=== PATIENT | female | born 1980 | race Two or more races ===

== ENCOUNTER 2018-01-10 17:22 | Emergency (ER) | payer SELFPAY ==
[~2018-01-10] VITALS: Ht 162.6 cm; Wt 68.0 kg
[~2018-01-10 17:22] MED LIST: IBUPROFEN600 MG ORAL
[2018-01-10 17:46] VITALS: BP 121/82
[2018-01-10] MEDS ORDERED: Ketorolac 60mg Inj IM ONE (18:15)
--- NOTE | 2018-01-10 18:26 | Emergency Room Report ---
History of Present Illness General Chief Complaint: Lower Back Pain or Injury Source: Patient, Medical Record Present Illness HPI 37-year-old female presents to the emergency department complaining of 8 out of 10 in severity low back pain for approximately one week. Patient reports that she was doing a lot of house cleaning the day before onset of her symptoms. Patient reports that she has had some back pain in the past that she was very active with her job however usually resolved after a few days. Patient states that she has tried some warm compresses however she continues to have pain is presently only when she is laying down or when sh attempts to bend forward. She denies trauma or fall, history of recent spinal procedure or of having cancer.. She denies urinary frequency, urgency, hematuria or dysuria. Patient denies abdominal tenderness. Denies . Denies numbness tingling or loss of sensation or gross motor movements of the extremities, incontinence of bowel or bladder. Denies CP, Palpitations, LOC, AMS, dizziness, Changes in Vision, Sensation, paresthesias, or a sudden severe headache. Allergies: Coded Allergies: No Known Allergies (Unverified , 08/28/15) Patient History Past Medical History: see triage record Past Surgical History: none Pertinent Family History: none Reviewed Nursing Documentation: PMH: Agreed; PSxH: Agreed Nursing Documentation-PMH Past Medical History: No History, Except For Review of Systems All Other Systems: negative except mentioned in HPI Physical Exam Vital Signs Date Time Temp Pulse Resp B/P (MAP) Pulse Ox O2 Delivery O2 Flow Rate FiO2 01/10/18 17:37 98.2 99 18 121/82 95 Room Air 98.2 Sp02 EP Interpretation: reviewed, normal General Appearance: no apparent distress, alert, GCS 15, non-toxic Head: normocephalic, atraumatic Eyes: bilateral eye normal inspection, bilateral eye PERRL ENT: hearing grossly normal, normal voice Neck: full range of motion Respiratory: lungs clear, normal breath sounds, speaking full sentences Cardiovascular #1: regular rate, rhythm, normal capillary refill Cardiovascular #2: 2+ radial (R), 2+ radial (L) Gastrointestinal: non tender, soft Genitourinary: normal inspection, no CVA tenderness Musculoskeletal: back normal, gait/station normal, normal range of motion - with some exacerbation of pain. , tender - Mild Tenderness to palpation to paraspinal muscles of the lower back, no spinous process tenderness, no midline tenderness Neurologic: alert, oriented x3, responsive, motor strength/tone normal, sensory intact, normal gait, speech normal, grossly normal Psychiatric: judgement/insight normal Skin: normal color, no rash, warm/dry, well hydrated Medical Decision Making PA Attestation Dr. Gonsalez is my supervising Physician whom patient management has been discussed with. Diagnostic Impression: Primary Impression: Lumbosacral pain Additional Impression: Lumbosacral strain Qualified Codes: S39.012A - Strain of muscle, fascia and tendon of lower back , initial encounter ER Course 37-year-old female presents to the emergency department complaining of 8 out of 10 in severity low back pain for approximately one week. Patient reports that she was doing a lot of house cleaning the day before onset of her symptoms. Patient reports that she has had some back pain in the past that she was very active with her job however usually resolved after a few days. Patient states that she has tried some warm compresses however she continues to have pain is presently only when she is laying down or when sh attempts to bend forward. She denies trauma or fall, history of recent spinal procedure or of having cancer.. She denies urinary frequency, urgency, hematuria or dysuria. Patient denies abdominal tenderness. Denies . Denies numbness tingling or loss of sensation or gross motor movements of the extremities, incontinence of bowel or bladder. Denies CP, Palpitations, LOC, AMS, dizziness, Changes in Vision, Sensation, paresthesias, or a sudden severe headache. Ddx considered: epidural abscess, fracture, sprain/strain, meningitis, spinal chord injury. Vital signs reviewed and are during ED visit. Pt. is afebrile with no signs of infection No new symptoms, and denies recent trauma. No saddle anesthesia noted, Pt. denies incontinence Neurovascular is intact- No evidence of neurological deficit. FROM with pain. Pt. is ambulatory. * Mild Tenderness to palpation to paraspinal muscles of the lower back, no spinous process tenderness, no midline tenderness. *Pt. describes pain today as moderate and radiates across the lower back. ORDERS: none warranted at this time. INTERVENTIONS: - 60mg IM Toradol D/W Pt. conservative treatment and pcp follow up in 3-5 days. refrain from strenuous activities. Pt .given ED return precautions for worsening or new symptoms. DISCHARGE: At this time pt. is stable for d/c to home. Will provide printed patient care instructions, and any necessary prescriptions. Care plan and follow up instructions have been discussed with the patient prior to discharge. Last Vital Signs Date Time Temp Pulse Resp B/P (MAP) Pulse Ox O2 Delivery O2 Flow Rate FiO2 01/10/18 18:10 98.2 01/10/18 17:46 99 18 121/82 95 Room Air Disposition: HOME, SELF-CARE Condition: Stable Scripts Methocarbamol* (ROBAXIN*) 500 Mg Tablet 500 MG PO TID, #42 TAB 0 Refills Do not take at the same time as Soma. Prov: Evelyn Shore 01/10/18 Carisoprodol (SOMA) 250 Mg Tablet 250 MG PO QHS for 1 Day, #1 TAB Prov: Evelyn Shore 01/10/18 Referrals: NOT CHOSEN [facility]/MD,REFERRING (PCP) Patient Instructions: Lumbosacral Strain Additional Instructions: Take medications as directed. Follow up with a Primary Care Provider in 3-5 days, even if your symptoms have resolved. --Please review list of primary care clinics, if you do not already have a primary care provider Return sooner to ED if new symptoms occur, or current symptoms become worse. Do not drink alcohol, drive, or operate heavy machinery while taking Muscle Relaxers: Soma or Robaxin as this may cause drowsiness. - Please note that this Emergency Department Report was dictated using [employer] transcription supervisor technology software, occasionally this can lead to erroneous entry secondary to interpretation by the dictation equipment. Evelyn Shore Jan 10, 2018 18:26
[2018-01-10] MEDS ORDERED: SOMA250 MG PO (18:28)
[2018-01-10] MEDS ORDERED: ROBAXIN500 MG PO (18:28)
[2018-01-10 18:35] VITALS: BP 121/82
== END 2018-01-10 18:37 | disposition home or self-care (01) ==
LOC: EMR 17:52
DX: S39.012A Strain of muscle, fascia and tendon of lower back, initial encounter (principal); X50.9XXA Other and unspecified overexertion or strenuous movements or postures, initial encounter; Y93.E9 Activity, other interior property and clothing maintenance; Y92.009 Unspecified place in unspecified non-institutional (private) residence as the place of occurrence of the external cause
CPT/HCPCS: 96372; 99284